=== PATIENT | female | born 1975 | race Caucasian/White ===

== ENCOUNTER 2018-03-24 07:43 | Day surgery (SDC) | payer BC ==
[~2018-03-24] VITALS: Ht 170.2 cm; Wt 81.7 kg
[~2018-03-24 07:43] MED LIST: DOXY100C2 PO; DOXY75TA PO; DULO20CA45 PO; LORA1TAB PO; METO25TA35 PO; ZOLP-413 PO; ZOLP5TAB6 PO
[2018-03-24] MEDS ORDERED: BUPIVACAINE/PF-EPI 0.5% 1:200K ONE (08:28)
[2018-03-24 08:47] VITALS: BP 124/82
[2018-03-24] MEDS ORDERED: MIDAZOLAM 1 MG/ML, 2ML ONE (11:17)
[2018-03-24] MEDS ORDERED: FENTANYL PF 250 MCG/5ML ONE (11:17)
[2018-03-24] MEDS ORDERED: SUCCINYLCHOLINE 20 MG/ML, 10ML ONE (12:05)
[2018-03-24] MEDS ORDERED: CEFAZOLIN 1,000 MG ONE (12:05)
[2018-03-24] MEDS ORDERED: ONDANSETRON 2MG/ML, 2ML ONE ×2 (12:05→13:18)
[2018-03-24] MEDS ORDERED: DEXAMETHASONE 4 MG/ML, 1ML ONE (12:05)
[2018-03-24] MEDS ORDERED: PROPOFOL 10 MG/ML, 20ML ONE (12:05)
[2018-03-24] MEDS ORDERED: DIAZEPAM 5 MG/ML, 2ML IVPush PRN (12:30)
[2018-03-24] MEDS ORDERED: PROMETHAZINE 25 MG/ML, 1ML IV PRN (12:30)
[2018-03-24] MEDS ORDERED: hydrALAzine 20 MG/ML, 1ML IV PRN (12:30)
[2018-03-24] MEDS ORDERED: OXYcodone 5 MG/5 ML ORAL.SOL UDC PO PRN (12:30)
[2018-03-24] MEDS ORDERED: FENTANYL PF 100 MCG/2ML IV PRN (12:30)
[2018-03-24] MEDS ORDERED: LABETALOL 5MG/ML, 20ML IV PRN (12:30)
[2018-03-24] MEDS ORDERED: HYDROmorphone 2 MG/ML, 1ML IVPush PRN (12:30)
[2018-03-24] MEDS ORDERED: KETOROLAC 30 MG/1 ML IV PRN (12:30)
[2018-03-24] MEDS ORDERED: ALBUTEROL SULFATE 2.5 MG/3 ML NPPB PRN (12:30)
[2018-03-24] MEDS ORDERED: MEPERIDINE/PF 25MG/0.5ML IVPush PRN (12:30)
[2018-03-24] MEDS ORDERED: ACETAMINOPHEN 325 MG TABLET PO PRN (12:30)
[2018-03-24] MEDS ORDERED: ACETAMINOPHEN 650 MG/20.3 ML UDC ONE (13:18)
[2018-03-24] MEDS ORDERED: MEPERIDINE/PF 50 MG/ML ONE (13:19)
[2018-03-24] MEDS ORDERED: OXYcodone 5 MG/5 ML ORAL.SOL UDC ONE (13:19)
[2018-03-24] MEDS ORDERED: ONDANSETRON 2MG/ML, 2ML IVPush ONE (13:30)
== END 2018-03-24 15:45 | disposition home or self-care (01) ==
LOC: OUT 07:43 → EDSTATUS 12:00 → OUT 15:45
PROVIDERS: ATTEND Surgery
DX: C43.59 Malignant melanoma of other part of trunk (principal); R59.1 Generalized enlarged lymph nodes; Z90.710 Acquired absence of both cervix and uterus; Z98.890 Other specified postprocedural states; Z72.89 Other problems related to lifestyle; Z87.891 Personal history of nicotine dependence; Z88.8 Allergy status to other drugs, medicaments and biological substances; Z88.0 Allergy status to penicillin; Z91.013 Allergy to seafood
CPT/HCPCS: 38500; 78195; 88307; A9541; J0330; J0690; J1100; J2175; J2250; J2405; J2704; J3010

== ENCOUNTER → 2018-05-23 | Outpatient (CLI) | payer BC | END | disposition home or self-care (01) | LOC: ROC 07:04 | PROVIDERS: ATTEND Radiology Radiation Oncology | DX: D03.5 Melanoma in situ of trunk (principal); Z88.0 Allergy status to penicillin; Z88.2 Allergy status to sulfonamides | CPT/HCPCS: 99214; G0463 ==

== ENCOUNTER → 2018-06-07 | Outpatient (CLI) | payer BC | END | disposition home or self-care (01) | LOC: ROC 08:20 | PROVIDERS: ATTEND Radiology Radiation Oncology | DX: Z08 Encounter for follow-up examination after completed treatment for malignant neoplasm (principal); C43.51 Malignant melanoma of anal skin | CPT/HCPCS: 99212; G0463 ==

== ENCOUNTER 2018-07-11 10:23 | Outpatient (CLI) | payer BC | END 2018-07-11 23:59 | disposition home or self-care (01) | LOC: ROC 10:23 | PROVIDERS: ATTEND Radiology Radiation Oncology | DX: Z02.9 Encounter for administrative examinations, unspecified (principal) ==

== ENCOUNTER 2018-07-20 13:09 | Outpatient (CLI) | payer BC | END 2018-07-20 23:59 | disposition home or self-care (01) | LOC: ROC 13:09 | PROVIDERS: ATTEND Radiology Radiation Oncology | DX: C43.51 Malignant melanoma of anal skin (principal) | CPT/HCPCS: 99212; G0463 ==

== ENCOUNTER → 2018-08-03 | Outpatient (CLI) | payer OTHER, BC | END | disposition home or self-care (01) | LOC: ROC 08:32 | PROVIDERS: ATTEND Radiology Radiation Oncology | DX: C21.1 Malignant neoplasm of anal canal (principal); Z91.012 Allergy to eggs; Z88.0 Allergy status to penicillin; Z88.1 Allergy status to other antibiotic agents | CPT/HCPCS: 99212; G0463 ==

== ENCOUNTER → 2018-09-27 | Outpatient (CLI) | payer OTHER | END | disposition home or self-care (01) | LOC: EDSTATUS 08-04 16:41 → ROC 07:54 | PROVIDERS: ATTEND Radiology Radiation Oncology | DX: C43.51 Malignant melanoma of anal skin (principal) | CPT/HCPCS: 99213; G0463 ==

== ENCOUNTER 2020-10-02 06:47 | Day surgery (SDC) | payer BC, OTHER ==
[~2020-10-02] VITALS: Ht 168.9 cm; Wt 90.4 kg
[~2020-10-02 06:47] MED LIST changes: -DOXY75TA PO; +DOXY75TA13 PO
[2020-10-02 07:16] VITALS: BP 126/76
[2020-10-02] MEDS ORDERED: VANCOMYCIN PMX 1GM/200ML 200 ML IV ONE (07:30)
[2020-10-02] MEDS ORDERED: SODIUM CHLORIDE 0.9% 1,000 ML IV SCH (07:30)
[2020-10-02] MEDS ORDERED: VANCOMYCIN 1,000 MG in SODIUM CHLORIDE 0.9% 100 ML IV ONE (08:00)
[2020-10-02] MEDS ORDERED: DIPHENHYDRAMINE 50 MG/ML, 1ML ONE (08:42)
[2020-10-02] MEDS ORDERED: LIDOCAINE 1%, 20ML ONE (08:46)
[2020-10-02] MEDS ORDERED: DIPHENHYDRAMINE 50 MG/ML, 1ML IVPush ONE (09:00)
[2020-10-02] MEDS ORDERED: MIDAZOLAM 1 MG/ML, 5ML ONE ×2 (09:13→09:14)
[2020-10-02] MEDS ORDERED: FLUMAZENIL 0.1 MG/1 ML, 5ML ONE (09:14)
[2020-10-02] MEDS ORDERED: NALOXONE 1 MG/ML, 2ML ONE (09:14)
[2020-10-02] MEDS ORDERED: FENTANYL PF 100 MCG/2ML ONE (09:14)
[2020-10-02] MEDS ORDERED: HYDROcodone/APAP 5/325 TABLET ONE (11:06)
[2020-10-02] MEDS ORDERED: HYDROcodone/APAP 5/325 TABLET PO ONE (11:30)
== END 2020-10-02 11:50 | disposition home or self-care (01) ==
LOC: OUT 06:47
PROVIDERS: ATTEND Specialist
DX: C43.51 Malignant melanoma of anal skin (principal); Z79.891 Long term (current) use of opiate analgesic; Z79.899 Other long term (current) drug therapy; Z87.891 Personal history of nicotine dependence; Z88.0 Allergy status to penicillin; Z88.2 Allergy status to sulfonamides
CPT/HCPCS: 36561; 76937; 77001; 99156; 99157; C1788; J1200; J1642; J2250; J3010; J3370; J7030; J2310